=== PATIENT | female | born 1985 | race Caucasian/White ===

== ENCOUNTER → 2018-01-25 | Outpatient (CLI) | payer OTHER ==
[2018-01-25 11:53] LABS: HEMATOCRIT 39.3 % (37.0-47.0); HEMOGLOBIN 13.3 gm/dL (12.0-15.0); MCHC 33.8 g/dL (28.0-37.0); MCV 88.9 fL (80.0-100.0); RBC 4.42 mil/uL (4.20-5.00); RDW 12.6 % (10.5-14.5); WBC 5.2 thou/uL (4.0-11.0)
[2018-01-25 12:00] LABS: CALCIUM 9.1 mg/dL (8.5-10.1); CREATININE 0.6 mg/dL (0.6-1.0); POTASSIUM 3.6 mmol/L (3.5-5.1)
[2018-01-25 12:05] LABS: PROTIME 10.2 Seconds (9.3-11.4)
[2018-01-25 13:42] LABS: CSF GLUCOSE 62 mg/dL (40-70); CSF PROTEIN 26 mg/dL (15-45)
[2018-01-25 13:44] LABS: CSF CLARITY CLEAR; CSF COLOR COLORLESS; CSF RBC 0 /mm3; CSF WBC 0 /mm3 (0-10); VOLUME 8.5 ml
[2018-01-25 22:06] LABS: SERUM ALBUMIN 4.3 g/dL (3.5-5.5)
[2018-01-27 02:06] LABS: LYME ANTIBODY SCREEN* <0.91 ISR (0.00-0.90)
[2018-01-27 16:11] LABS: CSF IgG 1.3 mg/dL (0.0-8.6)
== END | disposition home or self-care (01) ==
LOC: RAD
PROVIDERS: Psychiatry & Neurology Neurology
DX: H47.11 Papilledema associated with increased intracranial pressure (principal); R51 Headache